=== PATIENT | male | born 1970 | race Caucasian/White ===

== ENCOUNTER 2018-07-06 10:39 | Emergency (ER) | payer MEDICARE ==
[~2018-07-06] VITALS: Ht 182.9 cm; Wt 125.5 kg
[2018-07-06 10:50] VITALS: BP 135/86; Ht 182.9 cm; Wt 125.5 kg
[2018-07-06] MEDS ORDERED: BUSPAR10 MG PO (10:52)
[2018-07-06] MEDS ORDERED: CLOTRIM ANTIFUN15 GM TOPICAL (10:54)
[2018-07-06] MEDS ORDERED: NEURONTIN 300300 MG PO (10:56)
[2018-07-06] MEDS ORDERED: FISH OIL 1,0001 CA1 PO (10:56)
[2018-07-06] MEDS ORDERED: DEPAKOTE ER250 MG PO (10:56)
[2018-07-06] MEDS ORDERED: IBUPROFEN600 MG PO (10:56)
[2018-07-06] MEDS ORDERED: PROVERA10 MG IM (10:57)
[2018-07-06] MEDS ORDERED: MULTI-DAY VITAM1 TAB PO (10:58)
[2018-07-06] MEDS ORDERED: GLUCOPHAGE500 MG PO (10:58)
[2018-07-06] MEDS ORDERED: MELATONIN 3 MG1 TAB PO (10:58)
[2018-07-06] MEDS ORDERED: HYDROCODON-ACE1 EAC2 PO (10:59)
[2018-07-06] MEDS ORDERED: NAPROXEN SODIU220 M1 PO (10:59)
[2018-07-06] MEDS ORDERED: VITAMIN D31000 UNI2 PO (11:00)
[2018-07-06] MEDS ORDERED: CALCIUM 250+D T1 TAB PO (11:00)
[2018-07-06] MEDS ORDERED: RISPERDAL2 MG PO (11:00)
[2018-07-06] MEDS ORDERED: ZOLOFT50 MG PO (11:01)
[2018-07-06 11:28] LABS: BASOPHILS 0.4 % (0-2); EOSINOPHILS 1.8 % (0-7); HEMATOCRIT 38.2 % (42.0-54.0); HEMOGLOBIN 12.7 g/dL (13.5-17.5); IMMATURE GRANULOCYTES 2.8 % (0-5); LYMPHOCYTES 19.7 % (15-50); MCH 28.2 pg (26.0-34.0); MCHC 33.2 g/dL (31.0-37.0); MCV 84.7 fL (80.0-100.0); MEAN PLATELET VOLUME 10.1 fL (7.4-10.4); MONOCYTES 7.4 % (2-11); NEUTROPHILS 67.9 % (40-80); PLATELET COUNT 317 10x3/uL (130-400); RBC 4.51 10x6/uL (4.20-6.10); RDW 14.4 % (11.5-14.5); WBC 12.4 10x3/uL (4.8-10.8)
[2018-07-06 11:32] LABS: UDS - AMPHET NEGATIVE QUAL (NEGATIVE); UDS - BARB NEGATIVE QUAL (NEGATIVE); UDS - BENZO NEGATIVE QUAL (NEGATIVE); UDS - COCAINE NEGATIVE QUAL (NEGATIVE); UDS - OPIATE NEGATIVE QUAL (NEGATIVE); UDS - PCP NEGATIVE QUAL (NEGATIVE); UDS - THC NEGATIVE QUAL (NEGATIVE)
[2018-07-06 11:36] LABS: APPEARANCE CLEAR (CLEAR); BILIRUBIN NEGATIVE (NEGATIVE); COLOR STRAW (YELLOW); GLUCOSE NEGATIVE (NEGATIVE); KETONE NEGATIVE (NEGATIVE); NITRITE NEGATIVE (NEGATIVE); PROTEIN NEGATIVE (NEGATIVE); SPECIFIC GRAVITY 1.005 (1.005-1.020); UROBILINOGEN NORMAL (NORMAL)
[2018-07-06 11:38] LABS: BACTERIA FEW /hpf (NONE SEEN); EPITHELIAL CELLS 0-5 /hpf (0-5); RED CELLS - URINE 0-5 /hpf (0-5); WHITE CELLS - URINE NSEEN /hpf (0-5)
[2018-07-06 11:44] LABS: ALBUMIN 3.5 g/dL (3.4-5.0); ALKALINE PHOSPHATASE 74 U/L (46-116); ALT (SGPT) 17 U/L (10-68); BILIRUBIN - TOTAL 0.21 mg/dL (0.2-1.3); CALC OSMOLALITY 274 mosm/kg (275-300); CHLORIDE - SERUM 98 mmol/L (98-107); GLUCOSE 172 mg/dL (74-106); MAGNESIUM - SERUM 2.1 mg/dL (1.8-2.4); POTASSIUM - SERUM 4.8 mmol/L (3.5-5.1); PROTEIN - SERUM 6.9 g/dL (6.4-8.2); SODIUM 135 mmol/L (136-145); UREA NITROGEN 16 mg/dL (7-18); eGFR NON AFRICAN AMERICAN 84 mL/min (90-120)
== END 2018-07-06 16:25 | disposition short-term general hospital (02) ==
LOC: D.ER 10:39
PROVIDERS: Family Medicine
DX: F31.30 Bipolar disorder, current episode depressed, mild or moderate severity, unspecified (principal); R45.851 Suicidal ideations; F20.9 Schizophrenia, unspecified; Z87.820 Personal history of traumatic brain injury; I10 Essential (primary) hypertension; E11.9 Type 2 diabetes mellitus without complications

== ENCOUNTER 2018-09-04 11:53 | Observation (INO) | payer MEDICARE ==
[~2018-09-04] VITALS: Ht 365.8 cm; Wt 81.8 kg
[~2018-09-04 11:53] MED LIST: BUSPAR10 MG PO; CALCIUM 250+D T1 TAB PO; CLOTRIM ANTIFUN15 GM TOPICAL; DEPAKOTE ER250 MG PO; FISH OIL 1,0001 CA1 PO; GLUCOPHAGE500 MG PO; HYDROCODON-ACE1 EAC2 PO; IBUPROFEN600 MG PO; MELATONIN 3 MG1 TAB PO; MULTI-DAY VITAM1 TAB PO; NAPROXEN SODIU220 M1 PO; NEURONTIN 300300 MG PO; PROVERA10 MG IM; RISPERDAL2 MG PO; VITAMIN D31000 UNI2 PO; ZOLOFT50 MG PO
--- NOTE | 2018-09-04 12:21 | NUR ---
PT REPORTS CIGARETTE BUTT WAS LIT WHEN SWALLOWED
[2018-09-04 13:16] VITALS: BP 133/90
[2018-09-04] MEDS ORDERED: KLONOPIN1 MG PO ×2 (13:50→13:51)
[2018-09-04] MEDS ORDERED: NEURONTIN 300300 MG PO (13:50)
[2018-09-04] MEDS ORDERED: GLUCOPHAGE1000 MG PO (13:51)
[2018-09-04] MEDS ORDERED: ZYPREXA10 MG PO (13:52)
[2018-09-04] MEDS ORDERED: TEGRETOL200 MG PO (13:52)
[2018-09-04] MEDS ORDERED: ZOLOFT100 MG PO ×2 (13:52→13:53)
[2018-09-04] MEDS ORDERED: REMERON15 MG (13:52)
--- NOTE | 2018-09-04 13:58 | NUR ---
REPORT CALLED TO JALEN NOONAN BY SBAR FORMAT
[2018-09-04 14:13] VITALS: BP 129/79
--- NOTE | 2018-09-04 15:54 | NUR ---
PT LYING IN BED AAO X4 TO PERSON, PLACE, TIME, AND SITUATION. REQUESTING [place] FROM HOME LIST- ALERTED [place]. DENIES FURTHER NEEDS AT THIS TIME. CL IN REACH. SIDE RAILS UP X3 FOR PT SAFETY. BED IN LOWEST POSITION.
[2018-09-04 16:53] VITALS: BP 118/76
[2018-09-04 22:12] VITALS: BP 143/87
[2018-09-05 01:15] VITALS: BP 135/78
--- NOTE | 2018-09-05 03:08 | NUR ---
I have reviewed this patient and I concur with the Shift Assessment completed by the Licensed Practical Nurse today this shift.
[2018-09-05 04:55] LABS: BASOPHILS 0.7 % (0-2); EOSINOPHILS 3.2 % (0-7); HEMATOCRIT 37.8 % (42.0-54.0); HEMOGLOBIN 12.7 g/dL (13.5-17.5); IMMATURE GRANULOCYTES 1.6 % (0-5); LYMPHOCYTES 22.9 % (15-50); MCH 28.1 pg (26.0-34.0); MCHC 33.6 g/dL (31.0-37.0); MCV 83.6 fL (80.0-100.0); MEAN PLATELET VOLUME 9.1 fL (7.4-10.4); MONOCYTES 6.1 % (2-11); NEUTROPHILS 65.5 % (40-80); PLATELET COUNT 336 10x3/uL (130-400); RBC 4.52 10x6/uL (4.20-6.10); RDW 14.3 % (11.5-14.5); WBC 13.4 10x3/uL (4.8-10.8)
[2018-09-05 05:29] VITALS: BP 127/73
[2018-09-05 05:48] LABS: ALBUMIN 3.1 g/dL (3.4-5.0); ALKALINE PHOSPHATASE 91 U/L (46-116); ALT (SGPT) 37 U/L (10-68); BILIRUBIN - TOTAL 0.24 mg/dL (0.2-1.3); CALC OSMOLALITY 260 mosm/kg (275-300); CALCIUM 8.1 mg/dL (8.5-10.1); CARBON DIOXIDE 26.7 mmol/L (21.0-32.0); CHLORIDE - SERUM 96 mmol/L (98-107); CREATININE - SERUM 0.7 mg/dL (0.6-1.3); POTASSIUM - SERUM 4.3 mmol/L (3.5-5.1); PROTEIN - SERUM 6.4 g/dL (6.4-8.2); SODIUM 130 mmol/L (136-145); UREA NITROGEN 11 mg/dL (7-18); eGFR NON AFRICAN AMERICAN > 90 mL/min (90-120)
[2018-09-05 05:51] LABS: GLUCOSE 114 mg/dL (74-106)
[2018-09-05 07:39] VITALS: Ht 365.8 cm; Wt 81.8 kg
[2018-09-05] MEDS ORDERED: ONCOLOGY MOUTHWASH PO (07:42)
--- NOTE | 2018-09-05 08:39 | MORECARE ---
CASE MANAGEMENT DISCHARGE SUMMARY PATIENT: DESEAN WALLS UNIT: [id number] ADM DATE: 09/04/18 AGE: 47 : 66 SEX: M ROOM/BED: D.2230 AUTHOR: CECE POON PHYSICIAN: REFERRING PHYSICIAN: BONILLA OKEEFE MD DATE OF SERVICE: 09/05/18 Discharge Plan Patient Name: DESEAN WALLS Facility: [facility]:[place] : 1970 Planned Disposition: [facility] Facility w Plan Readm Anticipated Discharge Date: 09/05/18 Discharge Date: Expected LOS: 1 Initial Reviewer: [email or web address] Initial Review Date: 09/05/2018 Generated: 09/05/18 9:39 am External Providers External Provider: [facility] Next Contact Date: Service Request Date: Service Type: Resolution: Reviewer: Comments: Patient Name: DESEAN WALLS Page [id number] at 0839 All edits/amendments must be made on the electronic document DICTATION DATE: 09/05/18837 PLAY READER: LEONARDO 09/05/1838 RPT#: [id number] DC DATE: STATUS: ADM IN [facility] [address] [place] [address] END OF REPORT
--- NOTE | 2018-09-05 08:45 | MORECARE ---
CASE MANAGEMENT DISCHARGE SUMMARY PATIENT: DESEAN WALLS UNIT: [id number] ADM DATE: 09/04/18 AGE: 47 : 66 SEX: M ROOM/BED: D.2230 AUTHOR: CECE POON PHYSICIAN: REFERRING PHYSICIAN: BONILLA OKEEFE MD DATE OF SERVICE: 09/05/18 Discharge Plan Patient Name: DESEAN WALLS Facility: [facility]:[place] : 1970 Planned Disposition: [facility] Facility w Plan Readm Anticipated Discharge Date: 09/05/18 Discharge Date: Expected LOS: 1 Initial Reviewer: [email or web address] Initial Review Date: 09/05/2018 Generated: 09/05/18 9:45 am Comments DCP- Discharge Planning Updated by [email or web address]: Rhonda Augustine on 09/05/18 7:[address] Received order for discharge. He lives at [facility] on [address] and will be returning there. 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 He will be going to a custodial bed. Clinical faxed to [facility]. Last DP export: 09/05/18 7:39 a Patient Name: DESEAN WALLS Page [phone] at 0845 All edits/amendments must be made on the electronic document DICTATION DATE: 09/05/1845 LEGAL RECORDS MANAGER: LEONARDO 09/05/18 0845 RPT#: [id number] DC DATE: STATUS: ADM IN [facility] [address] [place] [address] END OF REPORT
[2018-09-05 09:04] VITALS: BP 105/76
--- NOTE | 2018-09-05 09:16 | NUR ---
DISCUSSED DISCHARGE, MEDICATION AND FOLLOW-UP INSTRUCTIONS. PATIENT VERBALIZED UNDERSTANDING AND SIGNED ACCORDINGLY. IV REMOVED, TIP INTACT. REPORT CALLED TO STANLEY COSTA, AT [facility]. SHE SAID ONDINA WITH TRANSPORT IS ON HER WAY.
--- NOTE | 2018-09-05 10:05 | NUR ---
ONDINA FROM [facility] PICKED UP PATIENT. DISCHARGED TO [facility]. PATIENT DENIED ANY BELONGINGS. AMBULATED OUT.
== END 2018-09-05 10:05 ==
LOC: D.ER 11:53 → D.MS 13:33 → OBSVTIME 13:38 → D.MS 09-05 10:05
PROVIDERS: Family Medicine; ADMIT Legal Medicine; ATTEND Legal Medicine
DX: T28.0XXA Burn of mouth and pharynx, initial encounter (principal); X08.8XXA Exposure to other specified smoke, fire and flames, initial encounter; I10 Essential (primary) hypertension; E11.9 Type 2 diabetes mellitus without complications; E87.1 Hypo-osmolality and hyponatremia; Z87.820 Personal history of traumatic brain injury; F20.9 Schizophrenia, unspecified

== ENCOUNTER 2019-01-25 18:08 | Emergency (ER) | payer MEDICARE ==
[~2019-01-25 18:08] MED LIST changes: +GLUCOPHAGE1000 MG PO; +KLONOPIN1 MG PO; +ONCOLOGY MOUTHWASH PO; +REMERON15 MG; +TEGRETOL200 MG PO; +ZOLOFT100 MG PO; +ZYPREXA10 MG PO
[2019-01-25 18:47] VITALS: Ht 365.8 cm
== END 2019-01-25 18:49 | disposition home or self-care (01) ==
LOC: D.ER 18:08
DX: Z76.5 Malingerer [conscious simulation] (principal)